=== PATIENT | female | born 1960 | race Hispanic/Latino ===

== ENCOUNTER 2017-09-22 10:09 | Outpatient (CLI) | payer BC ==
--- NOTE | 2017-10-01 15:40 | MMO ---
BILATERAL SCREENING MAMMOGRAM: DATE: 09/22/17 HISTORY: 57-year-old female for screening mammography. COMPARISON: 03/17/14, 02/05/11. FINDINGS: Bilateral MLO and CC views of the breasts show scattered fibroglandular breast tissue. There is no ev idence of suspicious mass, suspicious cluster of microcalcifications, or area of architectural distor tion. Interpretation of this mammogram was performed with the assistance of computer-aided detection. IMPRESSION: BIRADS 1: Negative Annual screening mammography is recommended. POS: ALESHIA
== END 2017-09-22 10:10 | disposition home or self-care (01) ==
LOC: SCSMAMMO 10:09
PROVIDERS: ATTEND Family Medicine
DX: Z12.31 Encounter for screening mammogram for malignant neoplasm of breast (principal)
CPT/HCPCS: 77067; G0202

== ENCOUNTER 2018-07-13 12:15 | Outpatient (CLI) | payer BC ==
--- NOTE | 2018-07-13 15:35 | MRI ---
MRI OF THE LUMBAR SPINE WIHTOUT CONTRAST: INDICATION: History of left-sided sciatica for 3 weeks. COMPARISON: None. FINDINGS: The bone marrow signal intensity appears within normal limits. Five lumbar-type vertebral bodies are assumed for the purposes of this examination due to the lack of radiographic comparison. There is a small hemangioma within the right lateral aspect of the L1 vertebra. The conus is seen to terminate at approximately T12-L1. Visualized retroperitoneum and paravertebral soft tissues appear within normal limits. At L5-S1, there is a mild broad-based disk bulge and mild facet joint degenerative change. The broad -based bulge encroaches upon the neural foramina without definite impingement. At L4-5, there is an asymmetric left broad-based bulge with mild facet joint degenerative change. Th ere is mild neural foraminal encroachment without definite impingement. At L3-4, there is a broad-based bulge with mild facet joint degenerative change. At L2-3, there is a mild broad-based bulge. At L1-2, there is mild facet joint degenerative and broad-based bulge. At T12-L1, there is no appreciable central canal or neural foraminal narrowing. IMPRESSION: 1. Mild spondylosis of the lumbar spine. 2. Mild neural foraminal encroachment from broad-based bulges and facet hypertrophy at L3-4 through L5-S1 without definite nerve root impingement. POS: ALESHIA
== END 2018-07-13 12:16 | disposition home or self-care (01) ==
LOC: SCSMRI 12:15
PROVIDERS: ATTEND Family Medicine
DX: M51.17 Intervertebral disc disorders with radiculopathy, lumbosacral region (principal); M51.16 Intervertebral disc disorders with radiculopathy, lumbar region
CPT/HCPCS: 72148

== ENCOUNTER 2018-09-23 09:42 | Outpatient (CLI) | payer BC ==
--- NOTE | 2018-09-23 11:41 | MMO ---
BILATERAL MAMMOGRAMS: History: Screening mammography. Comparison: 09-22-17, 03-17-14 FINDINGS: Heterogeneously dense fibroglandular tissue. No dominant mass or suspicious calcifications. This stud y is interpreted with the assistance of computer aided detection. IMPRESSION: BIRADS category 1 - negative. Suggest routine follow up. POS: ALESHIA
== END 2018-09-23 09:43 | disposition home or self-care (01) ==
LOC: SCSMAMMO 09:42
PROVIDERS: ATTEND Family Medicine
DX: Z12.31 Encounter for screening mammogram for malignant neoplasm of breast (principal)
CPT/HCPCS: 77067

== ENCOUNTER 2018-10-23 08:53 | Outpatient (CLI) | payer BC ==
--- NOTE | 2018-10-23 10:00 | RAD ---
LUMBAR SPINE FOUR VIEWS: HISTORY: Left leg numbness x3 months. COMPARISON: None. FINDINGS: There are five lumbar type vertebral bodies. Vertebral body height is maintained. No fracture. In the neutral position, there is mild straightening of the normal lumbar lordosis. No spondylolisthesi s. No abnormal motion upon flexion or extension. Disk space heights are preserved. IMPRESSION: Unremarkable lumbar spine, four views. POS: LIU
== END 2018-10-23 08:54 | disposition home or self-care (01) ==
LOC: SCSRAD 08:53
PROVIDERS: ATTEND Surgery
DX: M54.5 Low back pain (principal)
CPT/HCPCS: 72120

== ENCOUNTER 2020-08-24 02:40 | Inpatient (IN) | payer BC ==
[2020-08-24 03:56] LABS: #Lymphocytes 0.8 thou/uL (1.20-3.40); #Monocytes 0.2 thou/uL (0.11-0.59); %Basophils 0.3 % (0.0-1.0); %Eosinophils 0.1 % (0.0-10.0); %Lymphocytes 15.6 % (21.0-51.0); %Monocytes 4.1 % (0.0-10.0); %Neutrophils 79.9 % (42.0-75.0); Mean Corpuscular HGB CONC 33.6 g/dL (32.0-36.0); Mean Corpuscular Hemoglobin 30.9 pg (27.0-31.0); Mean Corpuscular Volume 91.8 fL (78.0-98.0); Mean Platelet Volume 6.9 fL (7.4-10.4); Platelet Count 276 thou/uL (130-400); RBC Distribution Width 11.3 % (11.5-14.5); Red Blood Cell (RBC) Count 4.54 mill/uL (4.20-5.40); White Blood Cell (WBC) Count 5.1 thou/uL (4.8-10.8)
[2020-08-24] MEDS ORDERED: Albuterol 200 PUFF (6.7GM INHALER) ONE (04:06)
[2020-08-24 04:16] LABS: ALT (SGPT) 21 U/L (8-55); AST (SGOT) 27 U/L (5-34); Albumin 4.2 g/dL (3.5-5.0); Alkaline Phosphatase 80 U/L (40-110); Anion Gap 12 mmol/L (10-20); BUN (Urea Nitrogen) 7 mg/dL (9.8-20.1); Bilirubin, Total 0.3 mg/dL (0.2-1.2); Calc. Creatinine Clearance 0 mL/min (70-130); Calcium 8.7 mg/dL (7.8-10.44); Carbon Dioxide 28 mmol/L (22-29); Chloride 105 mmol/L (98-107); Estimated GFR-MDRD Greater than 90; Globulin 2.9 g/dL (2.4-3.5); Glucose 115 mg/dL (70-105); Potassium 3.5 mmol/L (3.5-5.1); Protein, Total 7.1 g/dL (6.0-8.3); Sodium 141 mmol/L (136-145)
[2020-08-24] MEDS ORDERED: Acetaminophen 500 MG TAB ONE (04:30)
[2020-08-24] MEDS ORDERED: Ketorolac Tromethamine 30 MG/ML VIAL ONE (05:29)
[2020-08-24] MEDS ORDERED: Doxycycline 100 MG CAP PO SCH (05:30)
[2020-08-24] MEDS ORDERED: HYDROcodone/Acetaminophen 5/325 mg Tablet PO PRN ×2 (07:02→07:03)
[2020-08-24 07:03] VITALS: BMI 27.6
[2020-08-24] MEDS ORDERED: Ondansetron PF 4 MG/2 ML Vial IVP PRN ×2 (07:03→08:59)
[2020-08-24] MEDS ORDERED: Acetaminophen 325 MG TAB PO PRN ×2 (07:03→08:59)
[2020-08-24] MEDS ORDERED: Ondansetron ODT 4 MG TAB PO PRN ×2 (07:04→08:59)
[2020-08-24] MEDS ORDERED: Dexamethasone 4 MG TAB PO SCH (07:15)
--- NOTE | 2020-08-24 08:21 | RAD ---
PORTABLE CHEST: Date: 08/24/2020 HISTORY: Shortness of breath. COVID. No comparison. FINDINGS: There is patchy infiltrate in the left mid and left lower lung field. Probably hazy ground-glass type infiltrate in the peripheral right lung. Heart and mediastinum unremarkable. IMPRESSION: Bilateral infiltrates consistent with COVID. POS: AGW
[2020-08-24] MEDS ORDERED: Acetaminophen 650 MG Suppository PR PRN (08:59)
[2020-08-24] MEDS ORDERED: Benzonatate 100 MG CAP PO PRN (09:03)
[2020-08-24] MEDS ORDERED: Albuterol Sulfate 2.5 mg/3 ml Neb NEB PRN (09:03)
[2020-08-24] MEDS ORDERED: Pharmacy to Dose REMDESIVIR PO PRN (09:06)
[2020-08-24] MEDS ORDERED: Benzonatate 100 MG CAP PO SCH (09:15)
[2020-08-24] MEDS: Famotidine 20 MG TAB PO SCH ×2 (09:54→19:18)
--- NOTE | 2020-08-24 09:56 | PDOC.HHP ---
Hospitalist HPI - History of Present Illness SOB due to coughing fits History of Present Illness: ADMISSION DATE: 08/24/2020 TIME OF ASSESSMENT: 0900 PRIMARY CARE PHYSICIAN: None CHIEF COMPLAINT: Cough and fever HPI: This is a 60-year-old woman who presented to the emergency department yesterday after having an episode of shortness of breath associated with persistent coughing. Patient states that she began to feel unwell last week on Friday with a dry cough, generalized body aches, and fever. She got tested for Covid on and found out Friday that she had tested positive. She has felt generally unwell for the last several days and reports a fever that has not responded to Tylenol at home. She has no underlying medical history including COPD or asthma. She does not take any medications at baseline. States her breathing improved after she was seen in the emergency department but she continues to have a persistent cough with frequent coughing fits. Has not noted any hemoptysis and denies having any chest pain. ED COURSE: In the emergency department the patient was noted to have a low-grade temp of 99.1 and sats of 95% on room air with mild tachycardia of 108. RR was 20 and per ED note she was in mild distress. EKG done in the emergency department showed a heart rate of 99, normal sinus rhythm. She had a chest x-ray done which demonstrated bilateral infiltrates consistent with Covid. Laboratory studies sodium white count of 5.1, hemoglobin 14, hematocrit 41.7, platelets of 76, neutrophils 79.9%. D-dimer mildly elevated at 0.57. BUN 7, creatinine 0.65, GFR greater than 90. Lactic acid 1.7. LFTs unremarkable. Troponin negative. She was given 1 g of Tylenol for fever. Also started on p.o. antibiotics with doxycycline and received 4 puffs of albuterol inhaler. Given 15 mg of Toradol IV. PAST MEDICAL HISTORY: None PAST SURGICAL HISTORY: x3 Hysterectomy SOCIAL HISTORY: Patient is fully independent at baseline. She lives with her [facility] denies any history of tobacco use alcohol consumption or illicit drug use. FAMILY HISTORY: Noncontributory ALLERGIES: Codeine Phenergan Promethazine CURRENT MEDICATIONS: None. Hospitalist ROS - Medication Medications: Active Medications Generic Name Dose Route Start Last Admin Trade Name Freq PRN Reason Stop Dose Admin Benzonatate 100 mg 08/24/20 09:15 08/24/20 09:54 Benzonatate 100 Mg Cap PO 08/24/20 11:00 100 mg 0915 IVONNE Administration Famotidine 20 mg 08/24/20 09:00 08/24/20 09:54 Famotidine 20 Mg Tab PO 20 mg BID IVONNE Administration Sodium Chloride 10 ml 08/24/20 09:00 08/24/20 09:54 Flush - Normal Saline 10 Ml Syringe IVF 10 ml Q12HR IVONNE Administration - Exam General Appearance: NAD, awake alert General - other findings: VS: Temp 97.8, HR 80, RR 16, sats 95% on room air, BP 98/50. Eye: PERRL ENT: normocephalic atraumatic, moist mucosa Neck: supple, no lymphadenopathy Heart: RRR, normal peripheral pulses Respiratory: CTAB Respiratory - other findings: persistent coughing, worse w/speaking and deep inspiration, bibaslar rales Gastrointestinal: soft, non-tender, non-distended, normal bowel sounds, no palpable masses Extremities: no edema Skin: normal turgor, no rashes Neurological: cranial nerve grossly intact, normal sensation to touch, no weakness Musculoskeletal: normal tone, normal strength, no muscle wasting Psychiatric: normal affect, normal behavior, A&O x 3 Hospitalist Results - Labs Result Diagrams: 08/24/20 03:44 08/24/20 03:44 Lab results: WBC 5.1 thou/uL (4.8-10.8) 08/24/20 03:44 Hgb 14.0 g/dL (12.0-16.0) 08/24/20 03:44 Hct 41.7 % (36.0-47.0) 08/24/20 03:44 MCV 91.8 fL (78.0-98.0) 08/24/20 03:44 Plt Count 276 thou/uL (130-400) 08/24/20 03:44 Neutrophils % 79.9 % (42.0-75.0) H 08/24/20 03:44 Sodium 141 mmol/L (136-145) 08/24/20 03:44 Potassium 3.5 mmol/L (3.5-5.1) 08/24/20 03:44 Chloride 105 mmol/L (98-107) 08/24/20 03:44 Carbon Dioxide 28 mmol/L (22-29) 08/24/20 03:44 BUN 7 mg/dL (9.8-20.1) L 08/24/20 03:44 Creatinine 0.65 mg/dL (0.6-1.1) 08/24/20 03:44 Glucose 115 mg/dL (70-105) H 08/24/20 03:44 Lactic Acid 1.7 mmol/L (0.5-2.2) 08/24/20 03:56 Calcium 8.7 mg/dL (7.8-10.44) 08/24/20 03:44 Total Bilirubin 0.3 mg/dL (0.2-1.2) 08/24/20 03:44 AST 27 U/L (5-34) 08/24/20 03:44 ALT 21 U/L (8-55) 08/24/20 03:44 Alkaline Phosphatase 80 U/L (40-110) 08/24/20 03:44 Troponin I 0.028 ng/mL (< 0.028) 08/24/20 03:44 C-Reactive Protein 2.11 mg/dL (= or < 0.5) H 08/24/20 09:22 Serum Total Protein 7.1 g/dL (6.0-8.3) 08/24/20 03:44 Albumin 4.2 g/dL (3.5-5.0) 08/24/20 03:44 Hospitalist H&P A/P - Problem (1) Pneumonia due to COVID-19 virus Code(s): U07.1 - COVID-19; J12.89 - OTHER VIRAL PNEUMONIA Status: Acute Assessment and Plan: Discussed with Dr. Garces and advised to start Remdesivir. Will check daily CBC, BMP, LFTs, CRP, D-Dimer and Ferritin. ABG requested D-dimer slightly elevated, CTA ordered. Continue Albuterol inhaler Tessalon for persistent coughing fits (2) Hypotension Status: Acute Assessment and Plan: Gentle hydration, unclear what her baseline is. She has no known medical problems. Monitor closely. (3) Cough Code(s): R05 - COUGH Status: Acute Assessment and Plan: Tessalon perles for coughing fits. - Plan Plan: GI prophylaxis with Famotidine. DVT Prophylaxis with Lovenox. CODE STATUS FULL
[2020-08-24] MEDS ORDERED: Enoxaparin Sodium 40 MG/0.4 ML SYRINGE SC SCH (10:15)
[2020-08-24] MEDS ORDERED: FLU VACC QS2020-21(6MOS UP)/PF 60 MCG/0.5 ML SYRINGE IM ONE (10:30)
[2020-08-24 10:44] LABS: Actual Bicarbonate (HCO3a) 23.9 mEq/L (22-28); Base Excess (BEa) 0.6 mEq/L (-2.0 to +3.0); CO2 Tension 34.2 mmHg (35.0-45.0); Calcium, Ionized (arterial) 1.13 mmol/L (1.12-1.30); Carboxyhemoglobin (COHb) 0.1 gm% (0.0-3.0); Hemoglobin (Hb) 13.5 g/dL (12.0-16.0); O2 Tension (PaO2), arterial 67.2 mmHg (80.0-100.0); Potassium - ABG Lab 3.23 mmol/L (3.70-5.30); pH, Arterial 7.46 (7.35-7.45)
[2020-08-24 10:47] LABS: Puncture Site RBA
--- NOTE | 2020-08-24 11:35 | CT ---
CT PULMONARY ANGIOGRAM WITH IV CONTRAST AND 3D POSTPROCESSING: Date: 08/25/2020 HISTORY: COVID-positive. Cough, Shortness of breath. Chest pain. FINDINGS: There is good contrast opacification of the pulmonary arterial vasculature without filling defects to suggest pulmonary embolism. No thoracic aortic aneurysm or dissection is seen. No pleural or pericar dial effusions noted. No mediastinal, hilar, or axillary mass or lymphadenopathy seen. There are patc hy areas of consolidation in the posterior lung panda bilaterally. IMPRESSION: No CT evidence of pulmonary embolism. POS: BEL
[2020-08-24] MEDS: Sodium Chloride 0.9% 1,000 ML IV SCH (11:42)
[2020-08-24] MEDS ORDERED: Potassium Chloride 20 MEQ TAB PO SCH (12:30)
[2020-08-24] MEDS ORDERED: Iopamidol-370 76% 500 ML 1 ML ONE (13:27)
[2020-08-24] MEDS: Benzonatate 100 MG CAP PO SCH ×2 (15:03→19:18)
[2020-08-24] MEDS ORDERED: REMDESIVIR (EUA) 200 MG in Sodium Chloride 0.9% 250 ML 210 ML IV SCH (18:00)
[2020-08-24] MEDS: Enoxaparin Sodium 40 MG/0.4 ML SYRINGE SC SCH (19:17)
[2020-08-25] MEDS: Sodium Chloride 0.9% 1,000 ML IV SCH ×2 (03:31→17:41)
[2020-08-25 05:51] LABS: #Lymphocytes 0.6 thou/uL (1.20-3.40); #Monocytes 0.2 thou/uL (0.11-0.59); #Neutrophils 1.3 thou/uL (1.40-6.50); %Basophils 1.5 % (0.0-1.0); %Eosinophils 0.2 % (0.0-10.0); %Lymphocytes 28.3 % (21.0-51.0); %Monocytes 10.7 % (0.0-10.0); %Neutrophils 59.4 % (42.0-75.0); Hemoglobin 12.7 g/dL (12.0-16.0); Mean Corpuscular HGB CONC 34.5 g/dL (32.0-36.0); Mean Corpuscular Hemoglobin 31.3 pg (27.0-31.0); Mean Corpuscular Volume 90.9 fL (78.0-98.0); Mean Platelet Volume 7.2 fL (7.4-10.4); Platelet Count 290 thou/uL (130-400); RBC Distribution Width 11.4 % (11.5-14.5); Red Blood Cell (RBC) Count 4.05 mill/uL (4.20-5.40); White Blood Cell (WBC) Count 2.2 thou/uL (4.8-10.8)
[2020-08-25 06:08] LABS: Anion Gap 12 mmol/L (10-20); BUN (Urea Nitrogen) 9 mg/dL (9.8-20.1); Calc. Creatinine Clearance 109 mL/min (70-130); Calcium 8.8 mg/dL (7.8-10.44); Carbon Dioxide 25 mmol/L (22-29); Chloride 108 mmol/L (98-107); Estimated GFR-MDRD Greater than 90; Glucose 124 mg/dL (70-105); Potassium 3.9 mmol/L (3.5-5.1); Sodium 141 mmol/L (136-145)
[2020-08-25] MEDS: Famotidine 20 MG TAB PO SCH ×2 (08:21→22:04)
[2020-08-25] MEDS: Benzonatate 100 MG CAP PO SCH ×3 (08:22→22:05)
[2020-08-25] MEDS: Enoxaparin Sodium 40 MG/0.4 ML SYRINGE SC SCH ×2 (08:22→22:05)
--- NOTE | 2020-08-25 16:15 | PDOC.HOSPP ---
- Subjective Encounter Date: 08/25/20 Encounter Time: 09:30 Subjective: Patient seen for follow-up regarding Covid 19 pneumonia. She reports nonproductive cough. - Objective Vital Signs & Weight: Vital Signs (12 hours) Temp Pulse Resp BP BP Pulse Ox 08/25/20 15:50 98.6 F 83 22 H 117/58 L 95 08/25/20 12:00 98.6 F 84 24 H 115/59 L 94 L 08/25/20 08:22 98.2 F 96 24 H 112/64 96 Weight Weight 155 lb 14.4 oz I&O: 08/24/20 08/25/20 08/26/20 06:59 06:59 06:59 Intake Total 2580 Balance 2580 Result Diagrams: 08/25/20 05:21 08/25/20 05:21 Additional Labs: Labs and MAR reviewed by [place] Hospitalist ROS - Review of Systems Constitutional: reports: weakness. denies: fever, chills, sweats, malaise Respiratory: reports: cough, dry, SOB with excertion. denies: shortness of breath, hemoptysis, pleuritic pain, sputum, wheezing Cardiovascular: denies: chest pain, palpitations, orthopnea, paroxysmal noc. dyspnea, edema, light headedness Gastrointestinal: denies: nausea, vomiting, abdominal pain, diarrhea, constipation, melena, hematochezia Genitourinary: denies: dysuria, frequency, incontinence, hematuria, retention Skin: denies: rash, lesions, carlyn, bruising - Medication Medications: Active Medications Generic Name Dose Route Start Last Admin Trade Name Freq PRN Reason Stop Dose Admin Benzonatate 100 mg 08/24/20 15:00 08/25/20 15:31 Benzonatate 100 Mg Cap PO 100 mg TID IVONNE Administration Enoxaparin Sodium 40 mg 08/24/20 21:00 08/25/20 08:22 Enoxaparin Sodium 40 Mg/0.4 Ml Syringe SC 40 mg 0900,2100 IVONNE Administration Famotidine 20 mg 08/24/20 09:00 08/25/20 08:21 Famotidine 20 Mg Tab PO 20 mg BID IVONNE Administration Sodium Chloride 1,000 mls @ 65 mls/hr 08/24/20 10:15 08/25/20 03:31 Normal Saline 0.9% IV 1,000 mls .[id number] IVONNE Administration Sodium Chloride 10 ml 08/24/20 08:59 08/25/20 08:22 Flush - Normal Saline 10 Ml Syringe IVF 10 ml Q12HR PRN Administration Saline Flush - Exam General Appearance: awake alert Eye: anicteric sclera ENT: normocephalic atraumatic Neck: supple, symmetric, no thyromegaly, no lymphadenopathy Heart: RRR, no gallops, no rubs, normal peripheral pulses Respiratory: CTAB, no wheezes, no rales, no ronchi Gastrointestinal: soft, non-tender, non-distended, normal bowel sounds Musculoskeletal: no muscle wasting Psychiatric: normal affect, normal behavior, oriented to person, oriented to place Hosp A/P (1) Pneumonia due to COVID-19 virus Code(s): U07.1 - COVID-19; J12.89 - OTHER VIRAL PNEUMONIA Status: Acute (2) Leukopenia Code(s): D72.819 - DECREASED WHITE BLOOD CELL COUNT, UNSPECIFIED Status: Acute (3) Cough Code(s): R05 - COUGH Status: Acute (4) Generalized weakness Code(s): R53.1 - WEAKNESS Status: Acute - Plan Patient is a pleasant 60-year-old lady who was admitted to the hospital a on August 24, 2020 for COVID-19 pneumonia. Patient has been started on remdesivir, continue. Start dexamethasone, zinc and vitamin C. Continue oxygen as needed. Watch for decompensation.
[2020-08-25] MEDS ORDERED: Zinc Sulfate 220 MG CAP PO SCH (16:30)
[2020-08-25] MEDS: REMDESIVIR (EUA) 100 MG in Sodium Chloride 0.9% 250 ML 230 ML IV SCH (17:39)
[2020-08-25] MEDS: Dexamethasone 4 mg/ml Vial SLOW IVP SCH (17:39)
[2020-08-26 05:49] LABS: #Lymphocytes 0.9 thou/uL (1.20-3.40); #Monocytes 0.3 thou/uL (0.11-0.59); #Neutrophils 2.6 thou/uL (1.40-6.50); %Basophils 0.3 % (0.0-1.0); %Eosinophils 0.5 % (0.0-10.0); %Lymphocytes 22.9 % (21.0-51.0); %Monocytes 7.8 % (0.0-10.0); %Neutrophils 68.6 % (42.0-75.0); Hemoglobin 12.9 g/dL (12.0-16.0); Mean Corpuscular HGB CONC 33.4 g/dL (32.0-36.0); Mean Corpuscular Hemoglobin 31.3 pg (27.0-31.0); Mean Corpuscular Volume 93.6 fL (78.0-98.0); Mean Platelet Volume 7.3 fL (7.4-10.4); Platelet Count 309 thou/uL (130-400); RBC Distribution Width 11.6 % (11.5-14.5); Red Blood Cell (RBC) Count 4.11 mill/uL (4.20-5.40); White Blood Cell (WBC) Count 3.8 thou/uL (4.8-10.8)
[2020-08-26 06:16] LABS: AST (SGOT) 32 U/L (5-34); Albumin 3.4 g/dL (3.5-5.0); Anion Gap 13 mmol/L (10-20); Bilirubin, Direct 0.1 mg/dL (0.1-0.3); Bilirubin, Total 0.2 mg/dL (0.2-1.2); CRP (Inflammatory) 0.73 mg/dL (= or < 0.5); Calc. Creatinine Clearance 130 mL/min (70-130); Calcium 8.3 mg/dL (7.8-10.44); Carbon Dioxide 17 mmol/L (22-29); Chloride 113 mmol/L (98-107); Estimated GFR-MDRD Greater than 90; Glucose 102 mg/dL (70-105); Protein, Total 6.2 g/dL (6.0-8.3); Sodium 139 mmol/L (136-145)
[2020-08-26 06:26] LABS: ALT (SGPT) 27 U/L (8-55); Alkaline Phosphatase 69 U/L (40-110); BUN (Urea Nitrogen) 11 mg/dL (9.8-20.1)
[2020-08-26] MEDS: Ascorbic Acid 500 mg Chewable Tablet PO SCH (08:27)
[2020-08-26] MEDS: Famotidine 20 MG TAB PO SCH ×2 (08:28→21:28)
[2020-08-26] MEDS: Enoxaparin Sodium 40 MG/0.4 ML SYRINGE SC SCH ×2 (08:28→21:28)
[2020-08-26] MEDS: Benzonatate 100 MG CAP PO SCH ×3 (08:28→21:28)
[2020-08-26] MEDS: Zinc Sulfate 220 MG CAP PO SCH (08:29)
[2020-08-26] MEDS: Sodium Chloride 0.9% 1,000 ML IV SCH (08:31)
[2020-08-26] MEDS ORDERED: Ascorbic Acid 500 mg Chewable Tablet PO SCH (09:00)
[2020-08-26] MEDS: Dexamethasone 4 mg/ml Vial SLOW IVP SCH (16:16)
--- NOTE | 2020-08-26 18:51 | PDOC.HOSPP ---
- Subjective Encounter Date: 08/26/20 Encounter Time: 14:00 Subjective: F/u: COVID The patient continues to have persistent dry cough. She has a mild sore throat. She feels her breathing is about the same. No chest pain. She states her has COVID but has no symptoms - Objective Vital Signs & Weight: Vital Signs (12 hours) Temp Pulse Resp BP Pulse Ox 08/26/20 16:27 98.3 F 77 18 104/67 94 L 08/26/20 12:34 99 F 82 16 105/69 98 08/26/20 08:38 98.5 F 76 18 109/70 94 L 08/26/20 08:27 94 L Weight Weight 155 lb 14.4 oz I&O: 08/25/20 08/26/20 08/27/20 06:59 06:59 06:59 Intake Total 2580 780 1260 Balance 2580 780 1260 Result Diagrams: 08/26/20 05:30 08/26/20 05:30 Hospitalist ROS - Review of Systems Constitutional: denies: fever, chills - Medication Medications: Active Medications Generic Name Dose Route Start Last Admin Trade Name Freq PRN Reason Stop Dose Admin Ascorbic Acid 1,000 mg 08/26/20 09:00 08/26/20 08:27 Ascorbic Acid 500 Mg Chewable Tablet PO 1,000 mg DAILY IVONNE Administration Benzonatate 100 mg 08/24/20 15:00 08/26/20 16:16 Benzonatate 100 Mg Cap PO 100 mg TID IVONNE Administration Dexamethasone 6 mg 08/25/20 17:00 08/26/20 16:16 Dexamethasone 4 Mg/Ml Vial SLOW IVP 6 mg Q24HR IVONNE Administration Enoxaparin Sodium 40 mg 08/24/20 21:00 08/26/20 08:28 Enoxaparin Sodium 40 Mg/0.4 Ml Syringe SC 40 mg 0900,2100 IVONNE Administration Famotidine 20 mg 08/24/20 09:00 08/26/20 08:28 Famotidine 20 Mg Tab PO 20 mg BID IVONNE Administration Sodium Chloride 1,000 mls @ 65 mls/hr 08/24/20 10:15 08/26/20 08:31 Normal Saline 0.9% IV 1,000 mls .[id number] IVONNE Administration Remdesivir 100 mg/ Sodium 250 mls @ 250 mls/hr 08/25/20 18:00 08/25/20 17:39 Chloride IV 08/28/20 18:59 250 mls 1800 IVONNE Administration Sodium Chloride 10 ml 08/24/20 08:59 08/25/20 08:22 Flush - Normal Saline 10 Ml Syringe IVF 10 ml Q12HR PRN Administration Saline Flush Zinc Sulfate 220 mg 08/26/20 09:00 08/26/20 08:29 Zinc Sulfate 220 Mg Cap PO 220 mg DAILY IVONNE Administration - Exam General Appearance: NAD, awake alert Eye: PERRL, anicteric sclera ENT: normocephalic atraumatic, no oropharyngeal lesions Neck: no JVD Heart: RRR, no murmur, no gallops, no rubs Respiratory: CTAB, no wheezes, no rales, no ronchi Gastrointestinal: soft, non-tender, non-distended, normal bowel sounds Extremities: no cyanosis, no clubbing, no edema Skin: normal turgor, no lesions, no rashes Neurological: cranial nerve grossly intact, normal sensation to touch, no focal deficits, no new deficit Hosp A/P - Plan CTA chest: bilateral consolidation, no PE This is a 60 year old female patient who presented with body aches, cough, SOB, fever, diagnosed with COVId pneumonia Acute hypoxic respiratory failure secondary to COVId pneumonia - CTA chest shows no PE, bibasilar consolidation - continue remdesivir for four days, dexamethasone - oxygen sat has been weaned down to 2L nasal cannula Leukopenia - WBC 3.8, likely from COVID, continue to monitor
[2020-08-26] MEDS: REMDESIVIR (EUA) 100 MG in Sodium Chloride 0.9% 250 ML 230 ML IV SCH (19:04)
[2020-08-27 05:54] LABS: #Lymphocytes 1.1 thou/uL (1.20-3.40); #Monocytes 0.5 thou/uL (0.11-0.59); #Neutrophils 3.7 thou/uL (1.40-6.50); %Basophils 0.2 % (0.0-1.0); %Eosinophils 0.2 % (0.0-10.0); %Monocytes 8.6 % (0.0-10.0); Hemoglobin 13.4 g/dL (12.0-16.0); Mean Corpuscular HGB CONC 34.6 g/dL (32.0-36.0); Mean Corpuscular Hemoglobin 31.3 pg (27.0-31.0); Mean Corpuscular Volume 90.3 fL (78.0-98.0); Platelet Count 331 thou/uL (130-400); RBC Distribution Width 11.5 % (11.5-14.5); Red Blood Cell (RBC) Count 4.27 mill/uL (4.20-5.40); White Blood Cell (WBC) Count 5.3 thou/uL (4.8-10.8)
[2020-08-27 06:20] LABS: ALT (SGPT) 28 U/L (8-55); AST (SGOT) 25 U/L (5-34); Albumin 3.7 g/dL (3.5-5.0); Alkaline Phosphatase 68 U/L (40-110); Anion Gap 13 mmol/L (10-20); BUN (Urea Nitrogen) 11 mg/dL (9.8-20.1); Bilirubin, Direct 0.2 mg/dL (0.1-0.3); Bilirubin, Total 0.3 mg/dL (0.2-1.2); CRP (Inflammatory) Less than 0.50 mg/dL (= or < 0.5); Calc. Creatinine Clearance 121 mL/min (70-130); Calcium 8.5 mg/dL (7.8-10.44); Carbon Dioxide 22 mmol/L (22-29); Chloride 108 mmol/L (98-107); Estimated GFR-MDRD Greater than 90; Glucose 119 mg/dL (70-105); Potassium 3.8 mmol/L (3.5-5.1); Protein, Total 6.3 g/dL (6.0-8.3); Sodium 139 mmol/L (136-145)
[2020-08-27] MEDS: Zinc Sulfate 220 MG CAP PO SCH (08:06)
[2020-08-27] MEDS: Enoxaparin Sodium 40 MG/0.4 ML SYRINGE SC SCH ×2 (08:06→20:35)
[2020-08-27] MEDS: Famotidine 20 MG TAB PO SCH ×2 (08:06→20:35)
[2020-08-27] MEDS: Ascorbic Acid 500 mg Chewable Tablet PO SCH (08:06)
[2020-08-27] MEDS: Benzonatate 100 MG CAP PO SCH ×3 (08:06→20:35)
--- NOTE | 2020-08-27 16:41 | PDOC.HOSPP ---
- Subjective Encounter Date: 08/27/20 Encounter Time: 12:00 Subjective: F/u: COVID The patient has been weaned down to room air and is saturating 93%. She states her cough is only minimal now. She ambulated around the room and desaturated to 85% while walking with a lot of coughing - Objective Vital Signs & Weight: Vital Signs (12 hours) Temp Pulse Resp BP Pulse Ox 08/27/20 14:18 94 L 08/27/20 12:34 98.3 F 68 18 96/62 95 08/27/20 08:17 98.5 F 73 18 101/65 94 L 08/27/20 08:06 94 L Weight Weight 155 lb 14.4 oz I&O: 08/26/20 08/27/20 08/28/20 06:59 06:59 06:59 Intake Total 780 1260 Balance 780 1260 Result Diagrams: 08/27/20 05:45 08/27/20 05:45 Hospitalist ROS - Review of Systems Constitutional: denies: fever, chills - Medication Medications: Active Medications Generic Name Dose Route Start Last Admin Trade Name Freq PRN Reason Stop Dose Admin Ascorbic Acid 1,000 mg 08/26/20 09:00 08/27/20 08:06 Ascorbic Acid 500 Mg Chewable Tablet PO 1,000 mg DAILY IVONNE Administration Benzonatate 100 mg 08/24/20 15:00 08/27/20 14:08 Benzonatate 100 Mg Cap PO 100 mg TID IVONNE Administration Dexamethasone 6 mg 08/25/20 17:00 08/26/20 16:16 Dexamethasone 4 Mg/Ml Vial SLOW IVP 6 mg Q24HR IVONNE Administration Enoxaparin Sodium 40 mg 08/24/20 21:00 08/27/20 08:06 Enoxaparin Sodium 40 Mg/0.4 Ml Syringe SC 40 mg 0900,2100 IVONNE Administration Famotidine 20 mg 08/24/20 09:00 08/27/20 08:06 Famotidine 20 Mg Tab PO 20 mg BID IVONNE Administration Remdesivir 100 mg/ Sodium 250 mls @ 250 mls/hr 08/25/20 18:00 08/26/20 19:04 Chloride IV 08/28/20 18:59 250 mls 1800 IVONNE Administration Sodium Chloride 10 ml 08/24/20 08:59 08/25/20 08:22 Flush - Normal Saline 10 Ml Syringe IVF 10 ml Q12HR PRN Administration Saline Flush Zinc Sulfate 220 mg 08/26/20 09:00 08/27/20 08:06 Zinc Sulfate 220 Mg Cap PO 220 mg DAILY IVONNE Administration - Exam General Appearance: NAD, awake alert Eye: PERRL, anicteric sclera ENT: normocephalic atraumatic, no oropharyngeal lesions Neck: no JVD Heart: RRR, no murmur, no gallops, no rubs, normal peripheral pulses Respiratory: CTAB, no wheezes, no rales, no ronchi Gastrointestinal: soft, non-tender, non-distended, normal bowel sounds Extremities: no cyanosis, no clubbing, no edema Skin: normal turgor, no lesions, no rashes Neurological: cranial nerve grossly intact, normal sensation to touch Hosp A/P - Plan CTA chest: bilateral consolidation, no PE This is a 60 year old female patient who presented with body aches, cough, SOB, fever, diagnosed with COVId pneumonia Acute hypoxic respiratory failure secondary to COVId pneumonia - CTA chest shows no PE, bibasilar consolidation -she is on remdesivir day 2 out of 4. Her oxygen sat has been weaned down to room air - she is still hypoxic while ambulating. I will add azithromycin - continue dexamethasone Leukopenia - WBC 3.8, likely from COVID, continue to monitor
[2020-08-27] MEDS: Dexamethasone 4 mg/ml Vial SLOW IVP SCH (17:22)
[2020-08-27] MEDS: Azithromycin 250 MG TAB PO SCH (17:22)
[2020-08-27] MEDS: REMDESIVIR (EUA) 100 MG in Sodium Chloride 0.9% 250 ML 230 ML IV SCH (18:49)
[2020-08-28 06:47] LABS: #Lymphocytes 0.9 thou/uL (1.20-3.40); #Monocytes 0.6 thou/uL (0.11-0.59); #Neutrophils 4.5 thou/uL (1.40-6.50); %Basophils 0.4 % (0.0-1.0); %Eosinophils 0.2 % (0.0-10.0); %Lymphocytes 15.2 % (21.0-51.0); %Monocytes 9.1 % (0.0-10.0); %Neutrophils 75.2 % (42.0-75.0); Hemoglobin 13.8 g/dL (12.0-16.0); Mean Corpuscular HGB CONC 34.3 g/dL (32.0-36.0); Mean Corpuscular Volume 90.2 fL (78.0-98.0); Platelet Count 372 thou/uL (130-400); RBC Distribution Width 11.5 % (11.5-14.5); Red Blood Cell (RBC) Count 4.46 mill/uL (4.20-5.40)
[2020-08-28 07:06] LABS: ALT (SGPT) 31 U/L (8-55); AST (SGOT) 23 U/L (5-34); Albumin 3.7 g/dL (3.5-5.0); Alkaline Phosphatase 68 U/L (40-110); Anion Gap 13 mmol/L (10-20); BUN (Urea Nitrogen) 13 mg/dL (9.8-20.1); Bilirubin, Direct 0.2 mg/dL (0.1-0.3); Bilirubin, Total 0.4 mg/dL (0.2-1.2); CRP (Inflammatory) Less than 0.50 mg/dL (= or < 0.5); Calc. Creatinine Clearance 109 mL/min (70-130); Calcium 8.5 mg/dL (7.8-10.44); Carbon Dioxide 25 mmol/L (22-29); Chloride 106 mmol/L (98-107); Estimated GFR-MDRD Greater than 90; Glucose 118 mg/dL (70-105); Potassium 3.8 mmol/L (3.5-5.1); Protein, Total 6.3 g/dL (6.0-8.3); Sodium 140 mmol/L (136-145)
[2020-08-28] MEDS: Benzonatate 100 MG CAP PO SCH ×2 (08:05→13:53)
[2020-08-28] MEDS: Ascorbic Acid 500 mg Chewable Tablet PO SCH (08:05)
[2020-08-28] MEDS: Zinc Sulfate 220 MG CAP PO SCH (08:06)
[2020-08-28] MEDS: Enoxaparin Sodium 40 MG/0.4 ML SYRINGE SC SCH (08:06)
[2020-08-28] MEDS: Famotidine 20 MG TAB PO SCH (08:06)
[2020-08-28] MEDS ORDERED: cefTRIAXone\\ROCEPHIN 1 GM in Sodium Chloride 0.9% 100 ML IVPB SCH (14:00)
[2020-08-28] MEDS: Dexamethasone 4 mg/ml Vial SLOW IVP SCH (17:07)
[2020-08-28] MEDS: REMDESIVIR (EUA) 100 MG in Sodium Chloride 0.9% 250 ML 230 ML IV SCH (17:07)
[2020-08-28] MEDS: Azithromycin 250 MG TAB PO SCH (17:07)
--- NOTE | 2020-08-28 17:58 | PDOC.DS.DS ---
Provider - Provider Date of Admission: 08/25/20 13:57 Date of Discharge: 08/28/20 Admitting Provider: Arin Ferrera MD Consultations: Infectious Disease (Dr Fantasma Garces) Primary Care Physician: OUT OF TOWN Course - Hospital Course Hospital Course: Brief HPI: This is a 60 year old female with past medical history of shortness of breath with persistent coughing, generalized body aches and fever. She came to the ER, was tachycardic with a respiratory rate of 20. CTA showed no PE but bilateral patchy consolidation. She was given doxycycline and admitted for further workup. Hospital Course: Acute hypoxic respiratory failure secondary to COVId pneumonia: She was admitted to the floor. Infectious disease was consulted and she was started on remdesivir therapy. She completed five days of this. She required 4L oxygen while she was in the hospital and was weaned off by the day of discharge. She continued to have a mild productive cough and did have some mild crackles on exam, so she was given a dose of IV ceftriaxone prior to discharge and was started on oral azithromycin. She will be given 6 days of cefdinir to complete a seven day course of antibiotics and will be discharged with four more days of azithromycin. She received dexamethasone while in the hospital but this will not be continued on discharge. Cough: she was discharged on tessalon pearls for pneumonia, antibiotics as mentioned above, and pepcid for possible GERD. Leukopenia: this resolved while she was in the hospital and most likely was from COVID. r Pertinent Studies: CTA thorax 08/25: no PE, patchy areas of consolidation bilaterally Chest X ray 08/25: bilateral infiltrates consistent with COVID Procedures: None Resuscitation Status: 08/24/20 08:59 Resuscitation Status Routine Co-Sign Provider: Resuscitation Status: FULL: Full Resuscitation - Labs Lab Results: 08/28/20 06:16 08/28/20 06:16 Abnormal Lab Results - Last 48 hrs 08/27/20 05:45: Chloride 108 H, Creatinine 0.56 L 08/27/20 05:45: Ferritin 368.65 H 08/27/20 05:45: MCH 31.3 H, MPV 7.0 L, Lymphocytes # 1.1 L 08/27/20 05:45: D-Dimer 0.45 H 08/28/20 06:16: Ferritin 340.69 H 08/28/20 06:16: MPV 7.0 L, Neutrophils % 75.2 H, Lymphocytes % 15.2 L, Lymphocytes # 0.9 L, Monocytes # 0.6 H Microbiology - Entire Visit 08/24/20 03:56 Venous blood - Right Hand Blood Culture - Preliminary NO GROWTH AT 48 HOURS 08/24/20 03:56 Venous blood - Left Hand Blood Culture - Preliminary NO GROWTH AT 48 HOURS - Physical Exam Vitals: Vital Signs (12 hours) Temp Pulse Resp BP Pulse Ox 08/28/20 14:03 98.8 F 82 16 103/65 94 L 08/28/20 08:25 98.3 F 73 18 98/55 L 94 L Weight Weight 155 lb 14.4 oz Physical Exam: The patient was seen and examined on the day of discharge. General: patient alert, awake, oriented times three CV: RRR, no murmurs, rubs, gallops Lungs: bilateral crackles at the bases Abdomen: +BS, soft, nontender, nondistended Extremities: no edema Problem - Discharge Plan Plan of Treatment: Follow up with your primary doctor in a week and get a repeat chest X ray in 6 weeks - Time spent with Patient (mins): 30 Plan - Discharge Medications Prescriptions: Cefdinir 300 mg PO Q12HR #12 capsule Azithromycin [Zithromax] 250 mg PO Q24HR #4 tab Famotidine [Pepcid] 20 mg PO BID #14 tab Benzonatate [Tessalon] 100 mg PO TID #21 cap Home Medications: Medication Instructions Recorded Confirmed Type Azithromycin [Zithromax] 250 mg PO Q24HR #4 tab 08/28/20 Rx Benzonatate [Tessalon] 100 mg PO TID #21 cap 08/28/20 Rx Cefdinir 300 mg PO Q12HR #12 capsule 08/28/20 Rx Famotidine [Pepcid] 20 mg PO BID #14 tab 08/28/20 Rx Allergies: codeine Allergy (Verified 08/24/20 05:16) promethazine [From Phenergan] Allergy (Verified 08/24/20 05:16) - Discharge Instructions Discharge Instructions:: You were diagnosed with COVID. You will complete four days of remdesivir today. You were also started on an antibiotics today. Please take cedfinir for six more days to complete a seven day course of antibibotics. Take azithromycin for four more days. Follow up with your primary doctor in a week and get a repeat chest X ray in 6 weeks. If you have fever, dizziness, lightheadedness, worsening shortness of breath, please come back to the hospital. Take pepcid for possible GERD as well. Activity:: Activity as Tolerated - Follow up Plan Referrals: TOWN PHYSICIAN,OUT OF [Primary Care Provider] - Disposition: HOME Quality - Care Measures CORE MEASURES:: N/A
[2020-08-28 18:03] VITALS: BP 104/61; TEMP 98.6
--- NOTE | 2020-08-30 04:27 | PQF ---
Dear : Radha Osborne Date 08/30/2020 Please exercise your independent, professional judgment in responding to the clarification form. Clinical indicators are provided on the bottom of this form for your review Can you please further clarify the diagnosis of the patient? Please check appropriate box(es): [X ] Sepsis due to COVID Pneumonia [ ] Severe sepsis with associated acute organ dysfunction of acute respiratory failure [ ] Septic Shock [ ] Other diagnosis [ ] Unable to determine In addition, please specify: Present on Admission (POA): [ ] Yes [ ] No [ ] Unable to determine Physician Signature: Date/Time: For continuity of documentation, please document condition throughout progress notes and discharge summary. Thank You. To be completed by CDI/Coding staff for physician review: Present Clinical Indicators - Signs / Symptoms / Labs Results and Location in Medical Record [ x ] Diagnosed with COVID 3 days ago ED Provider pg.1 [ x ] VS: BP 126/65, P: 108, R: 20, T: 99.1 ED Provider pg.1 [ x ] Tachypneic ED Provider pg.2 [ x ] Tachycardic ED Provider pg.2 [ x ] Patient met Sepsis criteria ED Provider pg.3 [ x ] During evaluation patient fever spikes to 101.4 ED Provider pg.3 [ x ] Hypotension H and P pg.4 [ x ] Leukopenia Hospitalist PN pg.3 [ x ] Blood culture no growth in 5 days Microbiology [ x ] WBC: 5.1, 2.2L, 3.8L, 5.3, 6.0 Laboratory [ x ] Acute hypoxic respiratory failure 2/2 COVID pneumonia Hospitalist PN pg.3 [ x ] CT of chest: There are patchy areas of consolidation in the posterior lung panda bilaterally CT of chest 08/24 [ x ] Lactate: 08/24=1.7 Laboratory 08/24 Present Risk Factors Results and Location in Medical Record [ x ] Pneumonia due to COVID 19 virus H and P pg.4 [ x ] 60 years old H and P pg.1 Present Treatments Results and Location in Medical Record [ x ] Infectious Consult Dr. Garces DS pg.1 [ x ] Chest/ Thorax CTA 08/24 [ x ] Chest X ray 08/24 [ x ] IV Fluids MAR [ x ] Remdesivir 200mg IV MAR [ x ] Azithromycin 500mg PO MAR [ x ] Rocephin 1 gm IV MAR [employer] Professional Signature: Sotero Wills Phone #: [phone] Date 08/30/2020 This is a permanent part of the Medical Record [facility]
== END 2020-08-28 19:13 | disposition home or self-care (01) | DRG 871 ==
LOC: ERS 02:40 → ERHOLD 05:08 → 2SW 06:54 → OBSVTOIN 08-25 13:57 → T4-B 08-25 21:50
PROVIDERS: ADMIT Internal Medicine; ATTEND Emergency Medicine
PROC: XW033E5 Introduction of Remdesivir Anti-infective into Peripheral Vein, Percutaneous Approach, New Technology Group 5 (ICD-10-PCS; principal; 2020-08-25)
PROC: 8E0ZXY6 Isolation (ICD-10-PCS; 2020-08-25)
DX: A41.89 Other specified sepsis (principal); U07.1 COVID-19; J96.01 Acute respiratory failure with hypoxia; J12.89 Other viral pneumonia; D72.819 Decreased white blood cell count, unspecified; K21.9 Gastro-esophageal reflux disease without esophagitis; Z88.5 Allergy status to narcotic agent; Z88.8 Allergy status to other drugs, medicaments and biological substances; Z90.710 Acquired absence of both cervix and uterus
CPT/HCPCS: 36415; 71045; 71275; 80048; 80053; 80076; 82728; 82805; 83605; 83615; 84484; 85025; 85379; 86140; 87040; 93005; 94760; 96372; 96374; 96375; G0378; J0696; J1100; J1650; J1885; J3490; J7050; J8540; Q9967

== ENCOUNTER 2021-11-21 09:46 | Outpatient (CLI) | payer BC | END 2021-11-21 09:47 | disposition home or self-care (01) | LOC: BICMAMMO 09:46 | PROVIDERS: ATTEND Family Medicine | DX: Z12.31 Encounter for screening mammogram for malignant neoplasm of breast (principal) | CPT/HCPCS: 77063; 77067 ==

== ENCOUNTER 2023-06-04 09:01 | Outpatient (CLI) | payer BC | END 2023-06-04 09:02 | disposition home or self-care (01) | LOC: RAD 09:01 | PROVIDERS: ATTEND Nurse Practitioner Family | DX: M79.671 Pain in right foot (principal) ==

== ENCOUNTER 2025-07-21 09:51 | Outpatient (CLI) | payer BC | END 2025-07-21 09:52 | disposition home or self-care (01) | LOC: BICRAD 09:51 | PROVIDERS: ATTEND Nurse Practitioner Family | DX: R05.9 Cough, unspecified (principal); R09.89 Other specified symptoms and signs involving the circulatory and respiratory systems | CPT/HCPCS: 71046 ==